=== PATIENT | male | born 1995 | race Caucasian/White ===

== ENCOUNTER 2024-03-20 22:37 | Emergency (ER) | payer OTHER, SELFPAY ==
[2024-03-20 22:44] VITALS: BP 159/115; PULSE 84; TEMP 36.8; O2SAT 98; BMI 51.6
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
== END 2024-03-21 00:52 | disposition home or self-care (01) ==
PROVIDERS: Emergency Provider Student in an Organized Health Care Education/Training Program
DX: S13.4XXA Sprain of ligaments of cervical spine, initial encounter (principal); S06.0X0A Concussion without loss of consciousness, initial encounter; T14.8XXA Other injury of unspecified body region, initial encounter; V43.62XA Car passenger injured in collision with other type car in traffic accident, initial encounter
CPT/HCPCS: 70450; 71250; 72125; 99284